=== PATIENT | male | born 1985 | race African-American/Black ===

== ENCOUNTER 2025-09-20 16:15 | Emergency (ER) | payer SELFPAY ==
[2025-09-20 16:19] VITALS: BP 183/99; PULSE 110; RESP 18; TEMP 37; O2SAT 98; BMI 31.2
--- NOTE | 2025-09-20 16:20 | ED_ITS ---
HPI - General Adult General Chief complaint: Dental/Oral Stated complaint: Dental Pain Time Seen by Provider: 09/20/25 16:25 Source: patient Mode of arrival: ambulatory Limitations: no limitations History of Present Illness ED Provider: Shonda Smith PA-C HPI narrative: Patient is a 40 year old assigned male at with no reported medical history presenting to the emergency department today with right lower dental pain. Patient states that over the last 3-4 days he has had right lower dental pain. Patient states that cold makes it worse and chewing on it makes it worse. Patient states that he is currently homeless and without health insurance. Patient denies any other complaints at this time. Related Data Previous Rx's ?Medication ?Instructions ?Recorded chlorhexidine gluconate 0.12 % 15 ml buccal BID #118 m L 09/20/25 mouthwash (Peridex) naproxen 500 mg tablet 500 mg PO BID 7 days #14 tab s 09/20/25 penicillin V potassium 500 mg 500 mg PO BID 10 days #2 0 tabs 09/20/25 tablet Allergies Allergy/AdvReac Type Severity Reaction Status Date / Time No Known Allergies Allergy Unverified 09/20/25 16:20 Review of Systems 2 Constitutional: Constitutional: Reports as per HPI Eyes: Eyes: Reports as per HPI ENT: Reports as per HPI Cardiovascular: Cardiovascular: Reports as per HPI Respiratory: Respiratory: Reports as per HPI Gastrointestinal: Gastrointestinal: Reports as per HPI Genitourinary: Genitourinary: Reports as per HPI Musculoskeletal: Musculoskeletal: Reports as per HPI Integumentary/Breasts: Skin/Breast: Reports as per HPI Neurologic: Reports as per HPI Psychiatric: Psychiatric: Reports as per HPI Endocrine: Endocrine: Reports as per HPI Hematologic/Lymphatic: Hematologic/Lymphatic: Reports as per HPI Allergic/Immunologic: Allergic/Immunologic: Reports as per HPI PMFSH Past Medical History Attestation statement: The following information was validated with the patient. Source: old records reviewed and nursing notes reviewed Social History Social History Advance Directives: No Advance Directives Information Provided: No Physical Exam ED Vital Signs: Vital Signs - 24 hr 09/20/25 16:19 09/20/25 16:36 Temperature 98.6 F 98.6 F Pulse Rate 110 H 110 H Respiratory Rate 18 18 Blood Pressure 183/99 H 183/99 H Pulse Oximetry 98 98 Oxygen Delivery Method Room Air Room Air BMI result Body Mass Index 31.2 Const General: cooperative, no acute distress, alert and awake Nutritional Appearance: well nourished Orientation/consciousness: patient oriented x3 HENMT Head: Yes normal to inspection and Yes atraumatic Ears: hearing grossly normal bilaterally and external ears normal General nose exam: Normal external nose present, no nasal discharge noted and no epistaxis Face and sinus: Yes normal facial exam, No abrasion and No laceration Mouth: Normal oral and palatal mucosa present, no drooling and no muffled voice Teeth image: 2 1. erythema, mild swelling, and pain with palpation but no evidence of fluctuance Eyes General: appearance normal, both eyes and all related structures Periorbital: periorbital findings normal Eyelids: Yes eyelids normal Conjunctivae: conjunctivae normal Pupils: Equal, round and reactive pupils present EOM: EOMs intact bilaterally Neck Neck: Yes normal visual inspection and Yes full ROM Resp Effort & Inspection: normal respiratory effort and able to speak in complete sentences Neuro General: patient oriented x3, moves all extremities and CN's II-XI intact bilaterally Cranial nerves: Yes Equal, round and reactive pupils present Cognition (Neuro): normal cognition Extrem General: Yes normal to inspection, Yes full ROM and Yes capillary refill normal Psych Appearance: grossly normal Mental Status: mental status grossly normal Affect: normal affect Attitude: cooperative Thought process: Normal thought process present Thought content: Normal thought content present Insight: Good insight present (Psych) Medications Administered Discontinued Medications Generic Name Dose Route Start Last Admin Trade Name Oriq PRN Reason Stop Dose Admin Naproxen 500 mg 09/20/25 16:24 09/20/25 16:33 Naproxen 500 Mg Tablet PO 09/20/25 16:25 500 mg ONCE ONE Administration Penicillin V Potassium 500 mg 09/20/25 16:24 09/20/25 16:33 Penicillin V Potassium 250 Mg Tablet PO 09/20/25 16:25 500 mg ONCE ONE Administration Medical Decision Making Medical Decision Making [facility] Narrative: Patient is a 40 year old assigned male at with no reported medical history presenting to the emergency department today with right lower dental pain. Patient's physical exam was as noted in the physical exam portion of this note and consistent with a dental infection without evidence of obvious abscess. I explained my physical exam findings to the patient. I answered all questions asked by the patient. I stressed the importance of the patient taking his medication as directed (either prescribed or as the over the counter packaging recommends). I stressed the importance of the patient following up with his primary care provider and a dentist. I stressed the importance of the patient returning to the emergency department immediately if his symptoms were to worsen or if he were to develop any dizziness, shortness of breath, difficulty breathing, chest pain, blurry vision, loss of vision, nausea, vomiting, abdominal pain, fever, chills, back pain, or any other complaints. Patient verbalized agreement and understanding with this treatment plan and discharge. Note: Patient was provided with a discount pharmacy card as well as housing + food + and other resources available in the community. Differential Diagnosis Differential Diagnoses: The differential diagnosis associated with the presentation includes Dental pain Dental abscess Dental infection Admission/Observation Consideration of admission/observation: Escalation of care including admission/observation considered Patient would have been admitted to the hospital had his clinical presentation warranted hospital admission. Prescription Management I considered prescription management with: Pain Medication (patient prescribed pain medication) and Antibiotic (patient prescribed an antibiotic for his right lower dental infection) Social Determinants Patient?s care significantly limited by Social Determinants of Health including: Inadequate housing and Low income Discharge Plan Discharge Clinical Impression: Dental infection Patient Disposition: Home, Self-Care Instructions: Dental Abscess (ED) Additional Instructions: Take your antibiotic as prescribed and follow up with a dentist. L IF you are prescribed home medications and/or you are taking over the counter medications at home - it is very important you continue to do so as prescribed / directed unless told otherwise by a healthcare provider. Follow up with your primary care provider. Do your best to stay well hydrated and rest. Return to the emergency department immediately if your symptoms worsen or if you develop any numbness, tingling, dizziness, shortness of breath, difficulty breathing, chest pain, blurry vision, loss of vision, nausea, vomiting, abdominal pain, fever, chills, back pain, or any other complaints. L If you do not have a primary care provider - call any of the below numbers to establish and follow up with a primary care provider. [facility] ([place]) [phone] [place] [address], [address] [facility] ([address] [place] [address]) [phone] [place] [address], [address], [address] [facility] ([address] [place]) [phone] [place] [address], [address] [place], [address] [facility] ([place]) [phone] [place] [address], [address] [place], [address] [facility] [phone] [address] [facility], [address] Please see the information below about our Patient Portal. If you are not yet enrolled in the [facility] Patient Portal, you will receive an enrollment email invitation following your visit to any [facility] setting. You may also self-enroll in the Patient Portal by visiting our website: [email or web address] The following information is required to access the Patient Portal: - Your [facility] Medical Record Number - Your personal home email address (must match what is in your electronic medical record, Registration staff can assist with this) - Name - Date of Capabilities of the Patient Portal: - Message some providers - View upcoming appointments - Access your health summary, medical history, and visit history - View current conditions and allergies - View procedure and lab results - View your medications, including guidelines, side effects, and precautions - Complete pre-appointment questionnaires requested by your provider - Ready summary reports of your office visits and procedures To access the Patient Portal Mobile [employer], follow these directions: - Search [email or web address] in the Valentine Store or Google [employer] Store - Download the Valentine - Search for [facility] - Enter your login/password Call or visit any of the clinics below to establish with a dentist: [facility] [address] [place] [address] OR [address] [place] [address] [address] [facility] [address] [place] [address] OR [address] [place] [address] [address] [facility] [address] [place] [address] [address] [facility] [address] [place] [address] OR [address] [facility] [address] [place] [address] [address] [facility] [address] [place] [address] [address] [facility] [address] [place] [address] OR [address] [place] [address] [address] [place] [address] OR [address] [facility] [address] [place] [address] [facility] [address] [place] [address] [facility] [address] [facility] [address] [place] [address] [facility] [address] [place] [address] [facility] [address] [place] [address] [facility] [address] [place] [address] [facility] [address] [facility], [address] Dental Clinic [address] [place] [address] OR [address] [place] [address] OR [address] [place] [address] (One number for all locations) [facility] [address] [place] [address] [facility] [address] [place] [address] [facility] [address] [place] [address] For help establishing with [facility], please reach out to our financial counselors and certified application counselors: [address] [facility], [address] Email: [email or web address] Housing / Shelters Glenn Mata (Male ONLY) [address] [place] [address] [facility] [address] [place] [address] [facility] [address] [place] [address] [facility] [employer] the [employer] (Emergency Fdc) [address] [place] [address] 29 [place] [address] [address] [facility] [place] [address] [facility] [address] [place] [address] [facility] [address] [place] [address] [facility] [address] [place] [address] Bebe Mata (Male ONLY) [address] [place] [address] [facility] ([facility]) [address] [place] [address] [employer] [address] [place] [address] [facility] [place] (Male ONLY) [address] [place] [address] Non-emergency line: Emergency line: [address] [address] [facility] (Veterans only) [address] [place], [place] Food Resources / Community Meals DTA (Administers Food [place]) [address] [place], [place] Tuesday through Tuesday 8:00am - 5:00pm [facility] [address] [place], [place] [address]Tuesday, Tuesday, Tuesday, and Tuesday 9:00am - 3:00pm [employer] [address] [place] [address] Tuesday through Tuesday 12:00pm - 2:00pm (Press option 6) [employer] [facility] [address] [place], [place] [address]Wednesdays 10:00am - 6:00pm [employer] [address] [place] [address] Tuesday through Tuesday 10:30am - 12:00pm (Press option 4) [facility] ([facility]) [address] [place], [place] and Tuesday of each month 11:00am - 11:45am [employer] [address] [place] [address] [employer] [address] [place] [address] Food Pantry: Tuesday through 9:30am - 12:00pm Baked goods and vegetables: Tuesday and 10:00am - 11:00am Meals-to-go: 2:00pm - 3:00pm [facility] Program [address] [facility] (1st floor) [place] [address] Tuesday and Tuesday 8:30am - 4:30pm Tuesday and 9:00am - 5:00pm Tuesday 8:00am - 4:00pm Clothing Resources [employer] [facility] [employer] (Foster / Adoption Families ONLY) 6 [place] [address] [employer] [address] [place], [place] [phone] [facility] [employer] [facility] ([place] [facility] [place]) 10 [place], [place] [phone] (extension 121) [facility] [facility] [address] [place] [address] [facility] [address] [facility] (2nd floor) [place] [address] Showering Chidi [place] (FREE) [address] [place], [place] [id number] Prescriptions: New penicillin V potassium 500 mg tablet 500 mg PO BID 10 Days Qty: 20 0RF naproxen 500 mg tablet 500 mg PO BID 7 Days Qty: 14 0RF chlorhexidine gluconate [Peridex] 0.12 % mouthwash 15 ml buccal BID Qty: 118 0RF Interventions: ED Discharge Assessment Last Done: 09/20/25 16:36 Discharge Date/Time: 09/20/25 16:38 Print Language: Yakut
--- NOTE | 2025-09-20 16:20 | ED.GENADULT ---
HPI - General Adult General Chief complaint: Dental/Oral Stated complaint: Dental Pain Time Seen by Provider: 09/20/25 16:25 Source: patient Mode of arrival: ambulatory Limitations: no limitations History of Present Illness ED Provider: Shonda Smith PA-C HPI narrative: Patient is a 40 year old assigned male at with no reported medical history presenting to the emergency department today with right lower dental pain. Patient states that over the last 3-4 days he has had right lower dental pain. Patient states that cold makes it worse and chewing on it makes it worse. Patient states that he is currently homeless and without health insurance. Patient denies any other complaints at this time. Related Data Previous Rx's ?Medication ?Instructions ?Recorded chlorhexidine gluconate 0.12 % 15 ml buccal BID #118 mL 09/20/25 mouthwash (Peridex) naproxen 500 mg tablet 500 mg PO BID 7 days #14 tabs 09/20/25 penicillin V potassium 500 mg 500 mg PO BID 10 days #20 tabs 09/20/25 tablet Allergies Allergy/AdvReac Type Severity Reaction Status Date / Time No Known Allergies Allergy Unverified 09/20/25 16:20 Review of Systems Constitutional: Constitutional: Reports as per HPI Eyes: Eyes: Reports as per HPI ENT: Reports as per HPI Cardiovascular: Cardiovascular: Reports as per HPI Respiratory: Respiratory: Reports as per HPI Gastrointestinal: Gastrointestinal: Reports as per HPI Genitourinary: Genitourinary: Reports as per HPI Musculoskeletal: Musculoskeletal: Reports as per HPI Integumentary/Breasts: Skin/Breast: Reports as per HPI Neurologic: Reports as per HPI Psychiatric: Psychiatric: Reports as per HPI Endocrine: Endocrine: Reports as per HPI Hematologic/Lymphatic: Hematologic/Lymphatic: Reports as per HPI Allergic/Immunologic: Allergic/Immunologic: Reports as per HPI PMFSH Past Medical History Attestation statement: The following information was validated with the patient. Source: old records reviewed and nursing notes reviewed Social History Social History Advance Directives: No Advance Directives Information Provided: No Physical Exam ED Vital Signs: Vital Signs - 24 hr 09/20/25 16:19 09/20/25 16:36 Temperature 98.6 F 98.6 F Pulse Rate 110 H 110 H Respiratory Rate 18 18 Blood Pressure 183/99 H 183/99 H Pulse Oximetry 98 98 Oxygen Delivery Method Room Air Room Air BMI result Body Mass Index 31.2 Const General: cooperative, no acute distress, alert and awake Nutritional Appearance: well nourished Orientation/consciousness: patient oriented x3 HENMT Head: Yes normal to inspection and Yes atraumatic Ears: hearing grossly normal bilaterally and external ears normal General nose exam: Normal external nose present, no nasal discharge noted and no epistaxis Face and sinus: Yes normal facial exam, No abrasion and No laceration Mouth: Normal oral and palatal mucosa present, no drooling and no muffled voice Teeth image:  1. erythema, mild swelling, and pain with palpation but no evidence of fluctuance Eyes General: appearance normal, both eyes and all related structures Periorbital: periorbital findings normal Eyelids: Yes eyelids normal Conjunctivae: conjunctivae normal Pupils: Equal, round and reactive pupils present EOM: EOMs intact bilaterally Neck Neck: Yes normal visual inspection and Yes full ROM Resp Effort & Inspection: normal respiratory effort and able to speak in complete sentences Neuro General: patient oriented x3, moves all extremities and CN's II-XI intact bilaterally Cranial nerves: Yes Equal, round and reactive pupils present Cognition (Neuro): normal cognition Extrem General: Yes normal to inspection, Yes full ROM and Yes capillary refill normal Psych Appearance: grossly normal Mental Status: mental status grossly normal Affect: normal affect Attitude: cooperative Thought process: Normal thought process present Thought content: Normal thought content present Insight: Good insight present (Psych) Medications Administered Discontinued Medications Generic Name Dose Route Start Last Admin Trade Name Freq PRN Reason Stop Dose Admin Naproxen 500 mg 09/20/25 16:24 09/20/25 16:33 Naproxen 500 Mg Tablet PO 09/20/25 16:25 500 mg ONCE ONE Administration Penicillin V Potassium 500 mg 09/20/25 16:24 09/20/25 16:33 Penicillin V Potassium 250 Mg Tablet PO 09/20/25 16:25 500 mg ONCE ONE Administration Medical Decision Making Medical Decision Making MDM Narrative: Patient is a 40 year old assigned male at with no reported medical history presenting to the emergency department today with right lower dental pain. Patient's physical exam was as noted in the physical exam portion of this note and consistent with a dental infection without evidence of obvious abscess. I explained my physical exam findings to the patient. I answered all questions asked by the patient. I stressed the importance of the patient taking his medication as directed (either prescribed or as the over the counter packaging recommends). I stressed the importance of the patient following up with his primary care provider and a dentist. I stressed the importance of the patient returning to the emergency department immediately if his symptoms were to worsen or if he were to develop any dizziness, shortness of breath, difficulty breathing, chest pain, blurry vision, loss of vision, nausea, vomiting, abdominal pain, fever, chills, back pain, or any other complaints. Patient verbalized agreement and understanding with this treatment plan and discharge. Note: Patient was provided with a discount pharmacy card as well as housing + food + and other resources available in the community. Differential Diagnosis Differential Diagnoses: The differential diagnosis associated with the presentation includes Dental pain Dental abscess Dental infection Admission/Observation Consideration of admission/observation: Escalation of care including admission/observation considered Patient would have been admitted to the hospital had his clinical presentation warranted hospital admission. Prescription Management I considered prescription management with: Pain Medication (patient prescribed pain medication) and Antibiotic (patient prescribed an antibiotic for his right lower dental infection) Social Determinants Patient?s care significantly limited by Social Determinants of Health including: Inadequate housing and Low income Discharge Plan Discharge Clinical Impression: Dental infection Patient Disposition: Home, Self-Care Instructions: Dental Abscess (ED) Additional Instructions: Take your antibiotic as prescribed and follow up with a dentist. IF you are prescribed home medications and/or you are taking over the counter medications at home - it is very important you continue to do so as prescribed / directed unless told otherwise by a healthcare provider. Follow up with your primary care provider. Do your best to stay well hydrated and rest. Return to the emergency department immediately if your symptoms worsen or if you develop any numbness, tingling, dizziness, shortness of breath, difficulty breathing, chest pain, blurry vision, loss of vision, nausea, vomiting, abdominal pain, fever, chills, back pain, or any other complaints. If you do not have a primary care provider - call any of the below numbers to establish and follow up with a primary care provider. [facility] Primary Care ([place]) [phone] [place] [address], [address] [facility] Primary Care ([address] [place]) [phone] [place] [address], [address] [facility], [address] [facility] Primary Care ([address] [place]) [phone] 10 [facility], [address] [facility], [address] [facility] Primary Care ([place]) [phone] [place] [address], [address] [facility], [address] [facility] Family Medicine [phone] 140 [facility], [address] Please see the information below about our Patient Portal. If you are not yet enrolled in the [facility] Patient Portal, you will receive an enrollment email invitation following your visit to any [facility] care setting. You may also self-enroll in the Patient Portal by visiting our website: [email or web address] The following information is required to access the Patient Portal: - Your [facility] Medical Record Number - Your personal home email address (must match what is in your electronic medical record, Registration staff can assist with this) - Name - Date of Capabilities of the Patient Portal: - Message some providers - View upcoming appointments - Access your health summary, medical history, and visit history - View current conditions and allergies - View procedure and lab results - View your medications, including guidelines, side effects, and precautions - Complete pre-appointment questionnaires requested by your provider - Ready summary reports of your office visits and procedures To access the Patient Portal Mobile Valentine, follow these directions: - Search [employer] in the Valentine Store or [employer] Store - Download the Valentine - Search for [facility] - Enter your login/password Call or visit any of the clinics below to establish with a dentist: [facility] [address] [place] [address] OR [address] [place] [address] [address] [facility] [address] [place] [address] [address] [place] [address] [address] [facility] [address] [place] [address] [address] [facility] [address] [place] [address] [address] [facility] [address] [place] [address] [address] [facility] [address] [place] [address] [address] [facility] [address] [place] [address] OR [address] [place] [address] [address] [place] [address] [address] [employer] [address] [place] [address] [place] [address] [facility] [address] [place] [address] [facility] [address] [facility] [address] [place] [address] [facility] [address] [place] [address] [facility] [address] [place] [address] [facility] [address] [place] [address] [facility] 150 [facility], [address] [facility] [address] [place] [address] OR [address] [place] [address] OR [address] [place] [address] (One number for all locations) [facility] [address] [place] [address] [facility] [address] [place] [address] [facility] [address] [place] [address] For help establishing with [facility] / Medicaid, please reach out to our financial counselors and certified application counselors: [address] [facility], [address] Email: [email or web address] Housing / Shelters Glenn Mata (Male ONLY) [address] [place] [address] [facility] [address] [place] [address] [facility] [facility] [address] [place] [address] [facility] the [facility] (Emergency Fpc) [address] [place] [address] [place] [address] 1 [place] [address] [facility] 91 [place] [address] [facility] [address] [place] [address] [facility] [address] [place] [address] [facility] (Male ONLY) [address] [place] [address] [facility] ([facility]) [address] [place] [address] [employer] [address] [place] [address] [employer] (Male ONLY) [address] [place] [address] Non-emergency line: Emergency line: [address] [address] [facility] (Veterans only) [address] [place] [address] Food Resources / Community Meals DTA (Administers Food [place]) [address] [place] [address] Tuesday through Tuesday 8:00am - 5:00pm Emergency Food [facility] [address] [place] [address] Tuesday, Tuesday, Tuesday, and Tuesday 9:00am - 3:00pm [employer] [facility] [address] [place] [address] Tuesday through Tuesday 12:00pm - 2:00pm (Press option 6) [facility] [employer] [facility] [address] [place] [address] Wednesdays 10:00am - 6:00pm [facility] [address] [place] [address] Tuesday through Tuesday 10:30am - 12:00pm (Press option 4) Mobile Food Bank ([facility]) [address] [place] [address] and Tuesday of each month 11:00am - 11:45am [employer] [address] [place] [address] [facility] [address] [place] [address] Food Pantry: Tuesday through 9:30am - 12:00pm Baked goods and vegetables: Tuesday and 10:00am - 11:00am Meals-to-go: 2:00pm - 3:00pm [facility] Program [address] [place] (1st floor) [place] [address] Tuesday and Tuesday 8:30am - 4:30pm Tuesday and 9:00am - 5:00pm Tuesday 8:00am - 4:00pm Clothing Resources [employer] Community [employer]oset (Foster / Adoption Families ONLY) [address] [place] [address] [employer] 45 [place] [address] [facility] Away [facility] ([place] [facility]) 10 [place] [address] (extension 121) [facility] [address] [place] [address] [facility] [address] [facility] (2nd floor) [place] [address] [employer] (FREE) [address] [place] [address] Prescriptions: New penicillin V potassium 500 mg tablet 500 mg PO BID 10 Days Qty: 20 0RF naproxen 500 mg tablet 500 mg PO BID 7 Days Qty: 14 0RF chlorhexidine gluconate [Peridex] 0.12 % mouthwash 15 ml buccal BID Qty: 118 0RF Interventions: ED Discharge Assessment Last Done: 09/20/25 16:36 Discharge Date/Time: 09/20/25 16:38 Print Language: Ukrainian
--- OUTSIDE RECORDS SUMMARY | 2025-09-20 16:31 | XMS_ITS | Clinical Summary ---
Author Organization [facility] Address [address] [place] [address] Phone Care Team Providers Care Air Drill Operator Name Role Phone Unavailable Primary Care Provider Unavailabl e Immunizations Immunization Administration Dates Next Due DT 09/04/1998 DTP 11/12/1988,08/27/1986,08/03/1985 ,05/04/1985,1984 Hep B, ped/adol 09/18/2001,09/04/1998,08/31/1996 Hib (HbOC) 08/27/1986 MMR 08/31/1996,11/09/1985 OPV 11/12/1988,08/27/1986,05/04/1985 ,1984 Social History Tobacco Use Types Packs/Day Years Used Date Smoking Tobacco: Never Assessed Sex and Gender Information Value Date Recorded Sex Assigned at Not on file Legal Sex Male 3:11 PM EDT Gender Identity Not on file Sexual Orientation Not on file Plan of Treatment Health Maintenance Due Date Last Done Comments Varicella Vaccines (1 of 2 - 13+ 2-dose series) 1997 DTaP,Tdap,and Td Vaccines (6 - Tdap) 09/05/1998 09/04/1998, 11/12/1988, 08/27/1986, Additional history exists HPV Vaccines (1 - 3-dose SCDM series) 2011 Influenza Vaccines (#1) 2025 COVID-19 Vaccine ( season) 2025 HIB Vaccines Completed 08/27/1986 IPV Vaccines Completed 11/12/1988, 01/1986, 05/04/1985, Additional history exists MMR Vaccines Completed 08/31/1996, 11/09/1985 Hepatitis B Vaccines Completed 09/18/2001, 09/04/1998, 08/31/1996 Hepatitis A Vaccines Aged Out No long er eligible based on patient's age to complete this topic Men B Vaccine Aged Out No longer elig ible based on patient's age to complete this topic Meningococcal Vaccine Aged Out No mya miguel eligible based on patient's age to complete this topic Pneumococcal Vaccine Aged Out No long er eligible based on patient's age to complete this topic
[2025-09-20 16:36] VITALS: BP 183/99; PULSE 110; RESP 18; TEMP 37; O2SAT 98
== END 2025-09-20 16:38 | disposition home or self-care (01) ==
PROVIDERS: Emergency Provider Emergency Medicine
DX: K04.7 Periapical abscess without sinus (principal); K08.89 Other specified disorders of teeth and supporting structures
CPT/HCPCS: 99283

== ENCOUNTER 2025-10-03 12:56 | Emergency (ER) | payer MEDICAID, SELFPAY ==
[2025-10-03 13:23] VITALS: BP 168/92; PULSE 93; RESP 18; TEMP 36.7; O2SAT 97; BMI 36.4
--- NOTE | 2025-10-03 13:24 | ED.DENTAL ---
HPI - Dental/Oral General Chief complaint: Dental/Oral Stated complaint: Dental Pain Time Seen by Provider: 10/03/25 13:32 Source: patient and RN notes reviewed Mode of arrival: ambulatory Limitations: no limitations History of Present Illness ED Provider: Shahnaz Johnson PA-C HPI Narrative: This is a 40-year-old male who presents emergency department with complaints of dental pain. Patient states that he was seen here on September 20, 2025 for dental infection and was treated with a course of Augmentin. He finish this yesterday however states later on he felt increased pain. He states that now he has worsening right molar pain. He states that he is planning on following up with a dentist tomorrow. No fevers or chills. No difficulty swallowing or breathing. No other complaints or concerns at this time. MD Complaint: tooth pain Location: Tooth # (31) Onset (ago): day(s) Duration: constant Severity: moderate Relieving factors: nothing Exacerbating factors: chewing and cold Treatment prior to arrival: none Related Data Previous Rx's ?Medication ?Instructions ?Recorded chlorhexidine gluconate 0.12 % 15 ml buccal BID #118 mL 09/20/25 mouthwash (Peridex) naproxen 500 mg tablet 500 mg PO BID 7 days #14 tabs 09/20/25 penicillin V potassium 500 mg 500 mg PO BID 10 days #20 tabs 09/20/25 tablet acetaminophen 500 mg tablet 1,000 mg (2 x 500 mg) PO QID PRN 10/03/25 (Tylenol Extra Strength) pain #30 tabs clindamycin HCl 300 mg capsule 300 mg PO TID 7 days #21 caps 10/03/25 (Cleocin HCl) ibuprofen 600 mg tablet 600 mg PO Q6H PRN pain #30 tabs 10/03/25 Allergies Allergy/AdvReac Type Severity Reaction Status Date / Time No Known Allergies Allergy Verified 10/03/25 13:24 Review of Systems Review of Systems: Constitutional : No Fever, No Chills ENT/Mouth : No sore throat, No Rhinorrhea Eyes: No Eye Pain, No Swelling, No Redness Cardiovascular : No Chest Pain, No SOB Respiratory : No Cough, No Sputum Gastrointestinal : No Nausea, No Vomiting, No Diarrhea, No abdominal Pain Genitourinary : No Dysuria, No Hematuria Musculoskeletal : No joint pain, No Myalgias, No Joint Swelling Skin : No Skin Lesions Neuro : No Weakness, No Numbness, No Headache All other systems reviewed and are negative Yes all other systems are reviewed and are negative Constitutional: Constitutional: Reports as per [facility] Social History Social History Advance Directives: No Advance Directives Information Provided: No Physical Exam Vital Signs: Vital Signs: Last Vital Signs Temp 98.0 F 10/03/25 13:40 Pulse 93 10/03/25 13:40 Resp 18 10/03/25 13:40 BP 168/92 H 10/03/25 13:40 Pulse Ox 97 10/03/25 13:40 O2 Del Method Room Air 10/03/25 13:40 BMI result Body Mass Index 36.4 Const: General: cooperative, comfortable and no acute distress Orientation/consciousness: patient oriented x3 Limitations: no limitations HEENT: Other: Tooth number 31 with tenderness palpation, no surrounding erythema, fluctuance, or signs of dental infection. No trismus, drooling, or dysphonia. Head: Yes normal to inspection, Yes normocephalic and Yes atraumatic Ears: hearing grossly normal bilaterally General nose exam: Normal external nose present Face and sinus: Yes normal facial exam Mouth: Normal oral and palatal mucosa present, oropharynx normal and moist mucous membranes Throat: Yes posterior oropharynx normal Eyes: General: appearance normal, both eyes and all related structures Eyelids: Yes eyelids normal Conjunctivae: conjunctivae normal Sclerae: sclerae normal Pupils: Equal, round and reactive pupils present EOM: EOMs intact bilaterally Neck: Neck: Yes normal visual inspection, Yes full ROM and Yes no lymphadenopathy Lymphatic: no lymphadenopathy noted Chest: Chest palpation & inspection: normal inspection of the chest Resp: Effort & Inspection: normal respiratory effort and able to speak in complete sentences Auscultation: clear to auscultation bilaterally, no crackles, no rales, no rhonchi and no wheezes Cardio: Rate: regular rate Rhythm: regular rhythm Heart sounds: S1 normal heart sound present and S2 normal heart sound present GI: Inspection: Yes normal to inspection Skin: General skin exam: no rashes or lesions noted Trauma: no lacerations or abrasions Wounds: no wounds Neuro: General: patient oriented x3 and moves all extremities Cranial nerves: Yes Equal, round and reactive pupils present Extrem: General: Yes normal to inspection Right upper extremity: normal to inspection Left upper extremity: normal to inspection Right lower extremity: normal to inspection Left lower extremity: normal to inspection Medical Decision Making Medical Decision Making MDM Narrative: This is a 40-year-old male who presents emergency department for right lower dental pain. On arrival, blood pressure elevated 168/92, no chest pain or shortness for breath. Patient was seen here in August for a dental infection, discharged on Augmentin which he completed. Given that he recently was on Augmentin, will treat with clindamycin. Stressed the importance of following up with a dentist as this is only a temporary fix. Patient understands and agrees with plan. Patient stable for discharge Differential Diagnosis Differential Diagnoses: The differential diagnosis associated with the presentation includes Dental decay, dental caries, dental abscess, dentalgia, facial pain Discharge Plan Discharge Clinical Impression: Pain, dental Patient Disposition: Home, Self-Care Instructions: Toothache (ED) Additional Instructions: You were seen in the emergency department due to dental pain. You need to take the antibiotic, and follow-up with a dentist. Take ibuprofen 600 mg every 6 hours, 2 hours later, take Tylenol 1000 mg. You can take Tylenol every 8 hours. Do not mix ibuprofen with the naproxen as they your a similar type medication. If any new or worsening symptoms occur including but not limited to worsening pain, high fevers, inability to swallow, severe chest pain or shortness of breath, please seek emergent care. Prescriptions: New clindamycin HCl [Cleocin HCl] 300 mg capsule 300 mg PO TID 7 Days Qty: 21 0RF ibuprofen 600 mg tablet 600 mg PO Q6H PRN (Reason: pain) Qty: 30 0RF acetaminophen [Tylenol Extra Strength] 500 mg tablet 1,000 mg PO QID PRN (Reason: pain) Qty: 30 0RF No Action penicillin V potassium 500 mg tablet 500 mg PO BID 10 Days Qty: 20 0RF naproxen 500 mg tablet 500 mg PO BID 7 Days Qty: 14 0RF chlorhexidine gluconate [Peridex] 0.12 % mouthwash 15 ml buccal BID Qty: 118 0RF Interventions: ED Discharge Assessment Last Done: 10/03/25 13:40 Discharge Date/Time: 10/03/25 13:43 Print Language: American
[2025-10-03 13:40] VITALS: BP 168/92; PULSE 93; RESP 18; TEMP 36.7; O2SAT 97
--- OUTSIDE RECORDS SUMMARY | 2025-10-03 20:46 | XMS_ITS ---
Author Organization Unknown ENCOUNTERS Encounter Performer Location Date Diagnosis Diagnosis Status Pre Admit Generic ED Physician [facility] [address] [place] [id number] Pre Admit Wilman Campa [facility] [address] [place] [id number] NEGRA *Note: Encounters from your own facility or health system may be excluded. Allergies, Adverse Reactions, Alerts Allergen Type Severity Identification Date Medications Name Date Quantity Days Supplied GPI Number
--- OUTSIDE RECORDS SUMMARY | 2025-10-03 20:46 | XMS_ITS | Clinical Summary ---
Author Organization [facility] Address [address] [place] [address] Phone Care Team Providers Care Makeup Artist Name Role Phone Unavailable Primary Care Provider [...]
== END 2025-10-03 13:43 | disposition home or self-care (01) ==
PROVIDERS: Emergency Provider Emergency Medicine
DX: K08.89 Other specified disorders of teeth and supporting structures (principal)
CPT/HCPCS: 99282; 99283